=== PATIENT | male | born 1990 | race African-American/Black ===

== ENCOUNTER 2016-09-14 18:45 | Emergency (ER) | payer OTHER ==
[~2016-09-14] VITALS: Ht 198.1 cm; Wt 77.1 kg
[~2016-09-14 18:45] MED LIST: BACTRIM DS TAB1 EAC1 ORAL; IBUPROFEN600 MG ORAL; IBUPROFEN800 MG ORAL; NORCO 5-325 TA1 EACH ORAL; VIBRAMYCIN100 MG ORAL
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
[2016-09-14 19:15] VITALS: BP 130/78
[2016-09-14] MEDS ORDERED: IBUPROFEN600 MG ORAL (20:14)
[2016-09-14 20:20] VITALS: BP 130/78
--- NOTE | 2016-09-15 11:05 | Diagnostic Imaging Report ---
Indication: PAIN Technique: 3 views of the cervical spine Comparison: none Findings: Bony alignment is normal. No prevertebral soft tissue swelling. Vertebral body heights and disc spaces are preserved. No acute fractures. No dislocations. Impression: Negative
== END 2016-09-14 20:20 | disposition home or self-care (01) ==
LOC: EMR 19:00
DX: S16.1XXA Strain of muscle, fascia and tendon at neck level, initial encounter (principal); V43.92XA Unspecified car occupant injured in collision with other type car in traffic accident, initial encounter; Y93.9 Activity, unspecified; Y92.410 Unspecified street and highway as the place of occurrence of the external cause
CPT/HCPCS: 72040; 99283

== ENCOUNTER 2017-11-21 22:49 | Emergency (ER) | payer OTHER ==
[~2017-11-21] VITALS: Ht 198.1 cm; Wt 83.9 kg
[2017-11-21] MEDS ORDERED: Bacitracin Oint UD TOPIC ONE (23:00)
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
--- NOTE | 2017-11-22 00:29 | Emergency Room Report ---
History of Present Illness General Chief Complaint: Lower Extremity Injury Source: Patient, Medical Record Present Illness HPI Patient fell twisting his R foot 1 hour ago. He missed a step and fell. He has scrapes on his R hand and swelling on the side of his foot. The pain is 9/ 10, throbbing and aching when dependent, some radiation to ankle but ankle not tender. No prior fractures of foot but prior ankle fx. No LOC. Denies numbness. No bleeding. No major medical problems. Tetanus UTD. R handed Allergies: Coded Allergies: No Known Allergies (Unverified , 07/10/14) Patient History Past Medical History: see triage record Past Surgical History: other - torsion Social History: Reports: smoking Social History Narrative center customer service associate Reviewed Nursing Documentation: PMH: Agreed; PSxH: Agreed Nursing Documentation-PMH Past Medical History: No History, Except For Hx Gastrointestinal Problems: Yes - Male urogenital surgery Review of Systems Constitutional: Denies: fever Musculoskeletal: Reports: see HPI Skin: Reports: see HPI Neurological: Reports: see HPI Hematologic/Lymphatic: Reports: see HPI Physical Exam Vital Signs Date Time Temp Pulse Resp B/P (MAP) Pulse Ox O2 Delivery O2 Flow Rate FiO2 11/21/17 22:52 98.5 92 16 142/77 96 Room Air 98.4 Sp02 EP Interpretation: reviewed, normal General Appearance: well appearing, no apparent distress, GCS 15 Head: normocephalic, atraumatic Eyes: bilateral eye normal inspection, bilateral eye PERRL ENT: hearing grossly normal, normal voice, moist mucus membranes Neck: full range of motion, supple Respiratory: no respiratory distress, speaking full sentences Cardiovascular #2: 2+ dorsalis pedis (R) - good cap fill Gastrointestinal: normal inspection, other, scaphoid Musculoskeletal: back normal, digits/nails normal, no calf tenderness, pelvis stable, swelling - lateral R foot with point 5th MT tenderness, other - ankle and knee ligaments stable Neurologic: alert, oriented x3, motor strength/tone normal, sensory intact, normal gait Psychiatric: mood/affect normal Skin: abrasions - R hand, forearm, hematoma - R lateral foot Medical Decision Making Diagnostic Impression: Primary Impression: Foot fracture, right Qualified Codes: S92.901A - Unspecified fracture of right foot, initial encounter for closed fracture Additional Impression: Multiple abrasions ER Course Patient with R foot pain post fall. DDx: fx, sprain, hematoma, contusion amongst others. Xrays indicated. Analgesia also ordered (pt reluctant). Abrasions treated with topical antibiotics. Fx 5th MT. Splint applied by tech. Position excellent. Neurovasc checked by me and normal. Improved with treatment. Discussed expected course. Patient stable for outpatient observation and treatment. Other X-Ray Diagnostic Results Other X-Ray Diagnostic Results : X-Ray ordered: R foot # of Views/Limited Vs Complete: 3 View Indication: Pain EP Interpretation: Yes Interpretation: no dislocation, other - STS and fx Impression: Other Electronically Signed by: Logan Castillo MD VS reviewed and stable at discharge. Status: improved Disposition: HOME, SELF-CARE Condition: Improved Scripts Bacitracin (Bacitracin) 28.4 Gm Oint...g. 1 APPLIC TOPIC THREE TIMES A DAY, #20 GM Prov: Logan Castillo M.D. 11/22/17 Tramadol Hcl* (ULTRAM*) 50 Mg Tablet 50 MG ORAL Q6H PRN for For Pain, #10 TAB 0 Refills Prov: Logan Castillo M.D. 11/22/17 Ibuprofen* (MOTRIN*) 600 Mg Tablet 600 MG ORAL Q6H PRN for For Pain, #20 TAB Prov: Logan Castillo M.D. 11/22/17 Referrals: [facility],REFERRING (PCP) Logan Castillo M.D. Nov 22, 2017 00:29
[2017-11-22] MEDS ORDERED: IBUPROFEN600 MG ORAL (01:11)
[2017-11-22] MEDS ORDERED: TRAMADOL HCL50 MG ORAL (01:11)
[2017-11-22] MEDS ORDERED: BACITRACIN15 GM TOPIC (01:11)
[2017-11-22 01:20] VITALS: BP 136/79
== END 2017-11-22 01:20 | disposition home or self-care (01) ==
LOC: EMR 23:21
DX: M79.671 Pain in right foot (principal); S92.354A Nondisplaced fracture of fifth metatarsal bone, right foot, initial encounter for closed fracture; W10.9XXA Fall (on) (from) unspecified stairs and steps, initial encounter; Y92.9 Unspecified place or not applicable
CPT/HCPCS: 99284

== ENCOUNTER 2017-12-05 12:47 | Emergency (ER) | payer OTHER ==
[~2017-12-05] VITALS: Ht 198.1 cm; Wt 81.6 kg
[~2017-12-05 12:47] MED LIST changes: +BACITRACIN15 GM TOPIC; +TRAMADOL HCL50 MG ORAL
[2017-12-05 13:29] VITALS: BP 127/78
[2017-12-05 13:30] VITALS: BP 127/78
--- NOTE | 2017-12-05 13:31 | Emergency Room Report ---
History of Present Illness General Chief Complaint: Medical Clearance Source: Patient Present Illness HPI 27-year-old male presents emergency department requesting medical clearance to return back to work. 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 Patient states he continues to have some swelling and tenderness to the lateral aspect of the right foot and he rates 5- 6 out of 10 in severity pain. He denies new trauma or fall. Patient states that he did not follow-up with finish specialist or his primary care provider. Pt. Reports that he removed his splint after several days because it was uncomfortable. Denies calf pain/claudication. Denies erythema, fevers or chills. Allergies: Coded Allergies: No Known Allergies (Unverified , 07/10/14) Patient History Past Medical History: see triage record Past Surgical History: none Pertinent Family History: none Reviewed Nursing Documentation: PMH: Agreed; PSxH: Agreed Nursing Documentation-PMH Past Medical History: No Stated History Hx Gastrointestinal Problems: Yes - Male urogenital surgery Review of Systems All Other Systems: negative except mentioned in HPI Physical Exam Vital Signs Date Time Temp Pulse Resp B/P (MAP) Pulse Ox O2 Delivery O2 Flow Rate FiO2 12/05/17 13:02 98.0 78 16 127/78 97 Room Air 98.1 Sp02 EP Interpretation: reviewed, normal General Appearance: no apparent distress, alert, GCS 15, non-toxic Head: normocephalic, atraumatic ENT: hearing grossly normal, normal voice Neck: full range of motion Respiratory: speaking full sentences Cardiovascular #1: regular rate, rhythm Cardiovascular #2: 2+ dorsalis pedis (R) Musculoskeletal: back normal, gait/station normal - mildly compensatory gait, normal range of motion, tender - TTP to the lateral aspect of right 5th metatarsals, no erythema, bruises or open wounds noted. localiced Swelling is noted. Neurologic: alert, oriented x3, responsive, motor strength/tone normal, sensory intact, normal gait - mildly compensatory gait, speech normal, grossly normal Psychiatric: judgement/insight normal Skin: normal color, no rash, warm/dry, well hydrated Medical Decision Making PA Attestation Dr. ivy is my supervising Physician whom patient management has been discussed with. Diagnostic Impression: Primary Impression: Fracture follow-up ER Course 27-year-old male presents emergency department requesting medical clearance to return back to work. 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 Patient states he continues to have some swelling and tenderness to the lateral aspect of the right foot and he rates 5- 6 out of 10 in severity pain. He denies new trauma or fall. Patient states that he did not follow-up with finish specialist or his primary care provider. Pt. Reports that he removed his splint after several days because it was uncomfortable. Denies calf pain/claudication. Denies erythema, fevers or chills. Ddx considered but are not limited to Fracture, dislocation, contusion, Sprain/ Strain/Spasm, Medical non-compliance. . Review of this patient's previous visit shows dx and correlating imaging of 5th metatarsal fracture of the right foot. Vital signs: are WNL, pt. is afebrile H&PE are most consistent with musculoskeletal injury will perform imaging to r/ o fractures/dislocations. ORDERS: none required at this time. pt. does not want splint re-applied. ED INTERVENTIONS: - None Discussed with this patient that he needs to obtain medical clearance white orthopedic specialists. I discussed with this patient that he needs to be evaluated for proper healing of his foot fracture. I also recommended that patient rest his foot, utilizes crutches to decrease weightbearing activity, and to refrain from working because of continued symptoms with history of noncompliance. DISCHARGE: At this time pt. is stable for d/c to home. Will provide printed patient care instructions, and any necessary prescriptions. Care plan and follow up instructions have been discussed with the patient prior to discharge. Last Vital Signs Date Time Temp Pulse Resp B/P (MAP) Pulse Ox O2 Delivery O2 Flow Rate FiO2 12/05/17 13:02 98.0 78 16 127/78 97 Room Air 98.1 Disposition: HOME, SELF-CARE Condition: Stable Scripts Ibuprofen* (MOTRIN*) 600 Mg Tablet 600 MG ORAL THREE TIMES A DAY, #30 TAB 0 Refills Prov: Nano Kirkland 12/05/17 Departure Forms: Return to Work Return to Work Date: Dec 06, 2017 Work Restrictions: No Heavy Lifting, No Prolonged Standing Other Restrictions: Follow up with Orthopedist for clearance Return to Full Activity: Dec 12, 2017 Patient Instructions: Avulsion Fracture of the Foot Additional Instructions: Take medications as directed. * Continue to rest affected extremity. Follow up with an SHAREPOINT DEVELOPER in 3-5 days, even if your symptoms have resolved. Return to work status is at the discretion of your PCP or Ortho Specialist. Recommendation given for Ortho follow up --Please review list of primary care clinics, if you do not already have a primary care provider who can give you an Orthopedic Referral. Return sooner to ED if new symptoms occur, or current symptoms become worse. - Please note that this Emergency Department Report was dictated using Nihon Gigeirubber washer technology software, occasionally this can lead to erroneous entry secondary to interpretation by the dictation equipment. Nano Kirkland Dec 05, 2017 13:31
[2017-12-05] MEDS ORDERED: IBUPROFEN600 MG ORAL (13:32)
== END 2017-12-05 13:35 | disposition home or self-care (01) ==
LOC: EMR 13:15
DX: S92.901D Unspecified fracture of right foot, subsequent encounter for fracture with routine healing (principal); X58.XXXD Exposure to other specified factors, subsequent encounter; Z02.89 Encounter for other administrative examinations
CPT/HCPCS: 99283

== ENCOUNTER 2018-01-14 23:27 | Emergency (ER) | payer OTHER ==
[~2018-01-14] VITALS: Ht 198.1 cm; Wt 83.9 kg
[2018-01-15] MEDS ORDERED: IBUPROFEN600 MG ORAL (02:25)
--- NOTE | 2018-01-15 05:06 | Emergency Room Report ---
History of Present Illness General Chief Complaint: Upper Extremity Injury Source: Patient Present Illness Allergies: Coded Allergies: No Known Allergies (Unverified , 07/10/14) Nursing Documentation-PMH Hx Gastrointestinal Problems: Yes - Male urogenital surgery Physical Exam Vital Signs Date Time Temp Pulse Resp B/P (MAP) Pulse Ox O2 Delivery O2 Flow Rate FiO2 01/14/18 23:35 98.1 103 20 123/79 96 Room Air 98.1 Medical Decision Making Last Vital Signs Date Time Temp Pulse Resp B/P (MAP) Pulse Ox O2 Delivery O2 Flow Rate FiO2 01/14/18 23:35 98.1 103 20 123/79 96 Room Air 98.1 Disposition: LEFT W/OUT BEING SEEN Condition: Stable Referrals: [facility],REFERRING (PCP) Ha Santos MD Jan 15, 2018 05:06
[2018-01-15 07:08] VITALS: BP 123/79
== END 2018-01-15 00:30 | disposition left against medical advice (07) ==
LOC: EMR 01-15 00:11
DX: Z53.21 Procedure and treatment not carried out due to patient leaving prior to being seen by health care provider (principal)

== ENCOUNTER 2018-01-15 01:10 | Emergency (ER) | payer OTHER ==
[~2018-01-15] VITALS: Ht 198.1 cm; Wt 81.6 kg
--- NOTE | 2018-01-15 01:32 | Emergency Room Report ---
History of Present Illness General Chief Complaint: Upper Extremity Injury Source: Patient Present Illness HPI Patient is a 27-year-old male who presented after increased left hand pain after punching a wall approximately 5 days ago. Patient denies any other locations of pain. Patient had no recent tetanus vaccine. Allergies: Coded Allergies: No Known Allergies (Unverified , 07/10/14) Patient History Reviewed Nursing Documentation: PMH: Agreed; PSxH: Agreed Nursing Documentation-PM Past Medical History: No Stated History Hx Gastrointestinal Problems: Yes - Male urogenital surgery Review of Systems All Other Systems: negative except mentioned in HPI Physical Exam Vital Signs Date Time Temp Pulse Resp B/P (MAP) Pulse Ox O2 Delivery O2 Flow Rate FiO2 01/15/18 01:26 98.0 78 16 117/74 96 Room Air 98.1 General Appearance: well appearing, no apparent distress, alert, GCS 15 Head: normocephalic, atraumatic ENT: hearing grossly normal, normal voice Neck: full range of motion, supple Respiratory: no respiratory distress, speaking full sentences Musculoskeletal: other - swelling to left middle finger mcp joint. Neurologic: normal inspection, alert, oriented x3, replenishment specialist III-XII nml as tested, normal gait Psychiatric: mood/affect normal Skin: other - small avulsion, minimal soft tissue swelling without erythema Medical Decision Making Diagnostic Impression: Primary Impression: Contusion, hand ER Course Patient presented for left hand pain. Differential diagnosis included wasn't limited to fracture, cellulitis, abscess, dislocation among others. The x-ray imaging of the left hand 3 views interpreted by me showed soft tissue swelling without evident fracture or dislocation. The patient is placed in an Denzel wrap. He is given ibuprofen for pain. The patient is advised to have his wound rechecked in the next few days. Patient is advised to return if any worsening condition or if any changes in status that are concerning. This report is dictated with TixAlert water tanker driver software which may occasionally lead to discrepancies related to use of this software. Last Vital Signs Date Time Temp Pulse Resp B/P (MAP) Pulse Ox O2 Delivery O2 Flow Rate FiO2 18 01:26 98.0 78 16 117/74 96 Room Air 98.1 Status: improved Disposition: HOME, SELF-CARE Condition: Stable Scripts Ibuprofen* (MOTRIN*) 600 Mg Tablet 600 MG ORAL Q8H PRN for For Pain, #30 TAB 0 Refills Prov: Ha Santos MD 01/15/18 Ha Santos MD Jan 15, 2018 01:32
[2018-01-15] MEDS ORDERED: Tetanus/Diptheria/Pertussis Vaccine 0.5ml Syr IM ONE (01:45)
[2018-01-15 01:50] VITALS: BP 117/74
[2018-01-15] MEDS ORDERED: IBUPROFEN600 MG ORAL (02:25)
[2018-01-15 02:36] VITALS: BP 117/74
--- NOTE | 2018-01-15 09:01 | Diagnostic Imaging Report ---
Indication: Pain in left hand after punching wall Technique: 3 views left hand Comparison: none Findings: No acute fractures. No dislocations. Joint spaces are preserved. Impression: Negative
== END 2018-01-15 02:47 | disposition home or self-care (01) ==
LOC: EMR 01:37
DX: S60.222A Contusion of left hand, initial encounter (principal); Z23 Encounter for immunization; W22.09XA Striking against other stationary object, initial encounter; Y92.9 Unspecified place or not applicable
CPT/HCPCS: 90471; 90715; 99283

== ENCOUNTER 2018-07-27 13:13 | Emergency (ER) | payer OTHER ==
[~2018-07-27] VITALS: Ht 198.1 cm; Wt 81.6 kg
[2018-07-27] MEDS ORDERED: NKM (13:28)
[2018-07-27 13:30] VITALS: BP 125/86
--- NOTE | 2018-07-27 13:30 | NUR ---
ED Nurse Note: pt walked in to ED due to fever, headache, lower abdominal pain aw burning urination for couple days. breath sounds clear. respirations even and non-labored noted. no fever at the triage. urine sample collected. will wait for the further order.
[2018-07-27] MEDS ORDERED: TESSALON PERLE100 MG ORAL (13:47)
[2018-07-27] MEDS ORDERED: TYLENOL EXTRA500 MG ORAL (13:47)
--- NOTE | 2018-07-27 13:47 | Emergency Room Report ---
History of Present Illness General Chief Complaint: General Complaint Source: Patient Present Illness HPI 27-year-old male patient presents the ER with multiple complaints for the past 3 days. Patient complaining of cough, congestion, fever. Reports that fever was 103 degrees at home, currently afebrile in the ER, states his been taking Tylenol. Also reports diarrhea during this time. Denies recent travel outside the country. Denies blood in stool. Denies dysuria, hematuria, penile discharge. Denies concern for STI. Reports urine has seems darker in color, states normal in color again. States his been drinking fluids without difficulty, denies vomiting. Reports sick contacts at home with similar symptoms. Reports did not receive flu vaccine this year. Denies neck pain. Reports generalized aches and pains. States has been taking Sudafed for help relief the symptoms. Requesting work note. Reports able to pass flatus. Denies diabetes. Allergies: Coded Allergies: No Known Allergies (Unverified , 07/10/14) Patient History Past Medical History: see triage record Reviewed Nursing Documentation: PMH: Agreed; PSxH: Agreed Nursing Documentation-PMH Past Medical History: No Stated History Hx Gastrointestinal Problems: Yes - Male urogenital surgery Review of Systems All Other Systems: negative except mentioned in HPI Physical Exam Vital Signs Date Time Temp Pulse Resp B/P (MAP) Pulse Ox O2 Delivery O2 Flow Rate FiO2 07/27/18 13:23 99.1 96 16 125/86 99 Room Air Sp02 EP Interpretation: reviewed, normal General Appearance: well appearing, no apparent distress, alert, GCS 15, non- toxic Head: normocephalic, atraumatic Eyes: bilateral eye normal inspection, bilateral eye PERRL ENT: hearing grossly normal, normal pharynx, no angioedema, normal voice, TMs + canals normal, uvula midline, moist mucus membranes, pharyngeal erythema, other Neck: full range of motion, no meningismus, no bony tend Respiratory: lungs clear, normal breath sounds, no rhonchi, no respiratory distress, no accessory muscle use, no wheezing, speaking full sentences Cardiovascular #1: regular rate, rhythm, no edema, normal capillary refill Gastrointestinal: normal bowel sounds, non tender, soft, no mass, non-distended , no guarding, no rebound, other - Negative Rovsing, negative obturator Genitourinary: no CVA tenderness Musculoskeletal: back normal, digits/nails normal, gait/station normal, normal range of motion, non-tender Neurologic: alert, oriented x3, responsive, motor strength/tone normal, sensory intact, other - Negative Kernig, negative Brudzinski Psychiatric: mood/affect normal Skin: no rash, normal turgor Lymphatic: no adenopathy Medical Decision Making PA Attestation Dr. Burns is my supervising Physician whom patient management has been discussed with. Diagnostic Impression: Primary Impression: Influenza-like symptoms ER Course Pt. presents to the ED c/o vomiting and diarrhea. Ddx considered but are not limited to viral syndrome, gastritis, enteritis, influenza, viral URI, pneumonia, strep throat, rhinitis, sinusitis, UTI, dehydration. Vital signs: are WNL, pt. is afebrile at discharge. ER COURSE: No abdominal TTP, negative Rovsing, negative obturator, low suspicion for appendicitis, does not require CT or labs at this time. Lungs clear to auscultation, no wheezes, rhonci or rales. patient afebrile. Low suspicion for pneumonia, will not order CXR at this time. no tonsillar exudates, no pharyngeal erythema, history of cough, no fever, no stridor, uvula midline, low suspicion for peritonsillar abscess. Likely viral etiology of symptoms. Symptomatic treatment. drink plenty of fluids. Salt water gargles for sore throat. Followup with PCP for further treatment and/or referral as needed. PE benign. Patient informed of likely viral cause of symptoms. No fever, no blood in stool, no recent travel or hospitalizations, does not require abx treatment at this time. No signs of dehydration, moist mucus membranes, cap refil <2seconds, normal skin turgor. Patient reports eating and drinking normally. Urine likely more concentrated, denies coca-cola colored urine, denies dysuria or hematuria, does not require labs at this time, low suspicion or HATTIE. DISCHARGE: Patient instructed on BRAT diet. Patient instructed to remain hydrated, drink plenty of fluids. Patient questions asked and answered. Patient states understanding and agreement to treatment plan. At this time pt. is stable for d/c to home. Patient is resting comfortably, laughing, in no acute distress, nontoxic appearing. Will provide printed patient care instructions, and any necessary prescriptions. Care plan and follow up instructions have been discussed with the patient prior to discharge. Patient instructed to followup with PCP in 3-5 days. Patient reports understanding and agreement to treatment plan. Patient questions asked and answered. ER precautions given; patient instructed to return to ER for new or worsening of symptoms including but not limited to fever, intractable vomiting, severe abdominal pain, blood in stool. - Please note that this Emergency Department Report was dictated using BiolineRxcontent designer technology software, occasionally this can lead to erroneous entry secondary to interpretation by the dictation equipment. Last Vital Signs Date Time Temp Pulse Resp B/P (MAP) Pulse Ox O2 Delivery O2 Flow Rate FiO2 07/27/18 13:23 99.1 96 16 125/86 99 Room Air Disposition: HOME, SELF-CARE Condition: Stable Scripts Acetaminophen* (TYLENOL EXTRA STRENGTH*) 500 Mg Tablet 500 MG ORAL Q8H PRN for Prn Headache/Temp > 101, #30 TAB 0 Refills Prov: Brown Reddy 07/27/18 Benzonatate* (TESSALON PERLE*) 100 Mg Capsule 100 MG ORAL THREE TIMES A DAY, #30 PERLE Prov: Brown Reddy 07/27/18 Patient Instructions: Influenza, Adult, [id number] Additional Instructions: Followup with primary care provider in 3 -5 days. Drink plenty of fluids. Avoid spicy foods, avoid dairy foods. BRAT diet: bananas, rice, apple sauce, toast. Consider Immodium for diarrhea and Tylenol for pain symptoms. Take medications as directed. Patient questions asked and answered. ER precautions given, patient instructed to return to ER immediately for any new or worsening of symptoms. Brown Reddy Jul 27, 2018 13:47
--- NOTE | 2018-07-27 13:53 | NUR ---
ED Nurse Note: per SHELLEY Reddy, cancelled urine test.
[2018-07-27 14:00] VITALS: BP 125/86
[2018-07-27] MEDS ORDERED: Benzonatate 100mg Perles ORAL ONE (14:00)
--- NOTE | 2018-07-27 14:01 | NUR ---
ER DISCHARGE NOTE: Patient is cleared to be discharged per ERMD, pt is aox4, on room air, with stable vital signs. pt was given dc and prescription instructions, pt was able to verbalize understanding, pt id band removed without complications. pt is able to ambulate with steady gait. pt took all belongings.
== END 2018-07-27 14:00 | disposition home or self-care (01) ==
LOC: EMR 13:48
DX: J11.1 Influenza due to unidentified influenza virus with other respiratory manifestations (principal)
CPT/HCPCS: 99282